=== PATIENT | male | born 1980 | race Caucasian/White ===

== ENCOUNTER 2016-07-25 12:55 | Emergency (ER) | payer BC ==
--- NOTE | ~2016-07-25 | CT2 ---
[facility] A Service of [facility] RADIOLOGY TEXT RESULTS PATIENT: RADHA SPIVEY LOCATION: SED : [birth year] UNIT #: [id number] AGE: [address]: Barbara Mojica MD SEX: M ORDER DR: [id number] [address] [address] [id number] MR#: [id number] Acc #: [id number] NAME: RADHA SPIVEY. : 1980 SEX: M STUDY DATE/TIME: 07/25/2016 14:46 UNIT: SED ROOM: STUDY DESCRIPTION: CT Abd and Pelv W Cont Attending Physician: Barbara Mojica M.D. Ordering Physician: Barbara Mojica M.D. Primary Care Physician: No Primary Care Physician MEDICAL IMAGING REPORT This report is preliminary unless electronic signature is present. EXAM CT of the abdomen and pelvis with contrast INDICATIONS Abdominal pain, nausea, vomiting, diarrhea for 2 days. Patient reports the pain is in the middle of the abdomen. TECHNIQUE Axial CT images were obtained from the dome of the diaphragm through the symphysis pubis following the administration of oral and intravenous contrast material. This CT exam was performed with one or more of the following radiation dose reduction techniques: automatic exposure control, adjustment of mA and/or kV according to patient size, and iterative reconstruction. FINDINGS Images through the lung bases are clear. Stomach and proximal small bowel are within normal limits as are the adrenal glands and spleen. Liver is unremarkable. Gallbladder is surgically absent. Pancreas is atrophic. There is some mild prominence of the common bile duct likely postcholecystectomy in nature. No renal masses are seen. No free fluid or adenopathy is seen within the abdomen. Urinary bladder is within normal limits as is the prostate gland. The appendix is visualized and is within normal limits. There is no evidence mechanical bowel obstruction. I do question if the patient's sigmoid colon is somewhat thick-walled, which could reflect some colitis. However there is no pneumatosis or free air. There is no evidence of obstruction. No free fluid is seen within the pelvis. Review of bony windows does not demonstrate any aggressive osseous abnormalities. STS. [facility] A Service of [facility] RADIOLOGY TEXT RESULTS PATIENT: RADHA SPIVEY LOCATION: SED : 78 UNIT #: [id number] AGE: [address]: Barbara Mojica MD SEX: M ORDER DR: IMPRESSION 1. I do question if the patient's sigmoid colon is slightly thick-walled. This could reflect some colitis within the appropriate clinical setting. No pneumatosis, free air or evidence of obstruction is seen. 2. Patient's appendix is visualized and is within normal limits. 3. Patient does have some pancreatic atrophy. 4. Changes of prior cholecystectomy. Dictated by... Marta Tobar M.D. THIS IS AN ELECTRONICALLY VERIFIED REPORT Marta Tobar M.D. at 07/26/2016 1:20 PM DESHAWN/ziggy TD: 07/25/2016 18:07 JOB #: [id number] MEDICAL IMAGING REPORT Page 1 of 1
[~2016-07-25 12:55] MED LIST: ALBUTEROL17 GM INH; ATIVAN0.5 M1 PO; AZITHROMYCIN250 MG PO; BACTRIM DS TABL1 TA1 PO; BENTYL20 M1 PO; BENZONATATE PO; DICLOFENAC PO; ECZEMA ANTI-I28.3 GM TOP; FLOXIN10 ML AU; IBUPROFEN PO; IBUPROFEN600 MG PO; IBUPROFEN800 MG PO; IMODIUM2 MG PO; KEFLEX500 M1 PO; KEFLEX500 MG PO; LORTAB 7.51 TAB PO; MOTRIN600 MG PO; NEURONTIN800 MG PO; NO MEDICATIONS; PEN-VEE K PO; PERCOCET 5-3251 TAB PO; PERIDEX480 ML PO; PHENERGAN VC W120 M1 PO; PHENERGAN25 MG PO; PREDNISONE10 MG PO; ROBAXIN500 MG PO; ROBITUSSIN A-C S5 ML PO; SEROQUEL PO; SYMMETREL100 M1 PO; TEGRETOL XR; THORAZINE100 MG DOB; TOPAMAX PO; TOPAMAX50 MG PO; TRAZODONE PO; ZANTAC150 MG PO; ZITHROMAX500 MG PO; ZOFRAN ODT4 MG PO; ZOFRAN PO; ZOLOFT100 MG PO; ZOVIRAX200 MG PO; ZYPREXA PO
[2016-07-25 13:42] LABS: BASOPHIL# 0.1 X10e3 (0-0.3); BASOPHIL% 0.6 % (0-2.5); EOSINOPHIL# 0.2 X10e3 (0-0.7); EOSINOPHIL% 1.4 % (0.0-7.0); HEMATOCRIT 51.6 % (38.0-50.0); HEMOGLOBIN 17.5 gm/dL (13.0-16.0); LYMPHOCYTE# 1.2 X10e3 (1.0-3.5); LYMPHOCYTE% 10.8 % (17.0-45.0); MEAN CELL VOLUME 88.8 FL (83-96); MEAN CORPUSCULAR HEMOGLOBIN 30.1 PG (28-34); MEAN CORPUSCULAR HGB CONC 33.9 g/dL (30-36); MEAN PLATELET VOLUME 8.8 FL (6.5-11.5); MONOCYTE# 0.5 X10e3 (0-1.0); MONOCYTE% 4.6 % (3.0-12.0); NEUTROPHIL# 8.9 X10e3 (1.5-7.1); NEUTROPHIL% 82.6 % (40-75); PLATELET COUNT 175 X10e3 (140-420); RED BLOOD COUNT 5.82 X10e (3.90-5.60); RED CELL DISTRIBUTION WIDTH 13.3 % (11.0-15.5); WHITE BLOOD COUNT 10.7 X10e3 (4.0-10.5)
[2016-07-25 13:44] LABS: DIFF IND NO
[2016-07-25 14:02] LABS: URINE SOURCE CLEAN CATCH
[2016-07-25 14:03] LABS: ALBUMIN SERUM 4.8 g/dL (3.5-5.0); BILIRUBIN, DIRECT 0.5 mg/dL (0.0-0.2); BILIRUBIN,INDIRECT 1.4 mg/dL (0.0-0.9); BILIRUBIN,TOTAL 1.9 mg/dL (0.2-2.0); CALCIUM SERUM 9.2 mg/dL (8.4-10.2); GLOM FILT RATE Estimated 95.1 mL/min (>60); POTASSIUM 3.2 mmol/L (3.5-5.1); PROTEIN TOTAL SERUM 8.1 g/dL (6.0-8.3)
[2016-07-25 14:30] LABS: URINE APPEARANCE CLEAR; URINE BLOOD NEG (NEG); URINE COLOR BROWN; URINE GLUCOSE NEG (NORM); URINE LEUKOCYTE ESTERASE TRACE (NEG); URINE NITRATE POS (NEG); URINE PH 5.5 (5-8); URINE PROTEIN 2+ (NEG); URINE SPECIFIC GRAVITY 1.025 (1.003-1.035)
[2016-07-25 14:44] LABS: MICRO INDICATED? YES; URINE BILIRUBIN NEG (NEG)
[2016-07-25 14:45] LABS: URINE KETONE 2+ (NEG)
[2016-07-25 14:46] LABS: CULTURE INDICATED? YES; URINE BACTERIA 1+ (NEG); URINE CRYSTALS CALCIUM OXALATE /[HPF]; URINE RBC 0-2 /[HPF] (0-2); URINE SQUAMOUS EPITHELIAL CELL FEW /[HPF]
[2016-07-25 14:47] LABS: URINE GRANULAR CAST 0-2 /[HPF]; URINE HYALINE CAST 0-2 /[HPF]; URINE MUCUS PRESENT; URINE WHITE BLOOD CELL CAST 0-2 /[HPF]
== END 2016-07-25 16:45 | disposition home or self-care (01) ==
LOC: SED 12:55
PROVIDERS: Student in an Organized Health Care Education/Training Program
DX: E86.0 Dehydration (principal); E87.6 Hypokalemia; R11.2 Nausea with vomiting, unspecified; Z90.49 Acquired absence of other specified parts of digestive tract; Z90.89 Acquired absence of other organs; F17.200 Nicotine dependence, unspecified, uncomplicated; Z79.891 Long term (current) use of opiate analgesic; Z79.899 Other long term (current) drug therapy
CPT/HCPCS: 36415; 74177; 80048; 80076; 81003; 82150; 83690; 85025; 87086; 96361; 96374; 96375; 99284; C9113; J2405; Q9967

== ENCOUNTER 2016-08-11 19:13 | Emergency (ER) | payer BC | END 2016-08-12 04:11 | LOC: CED 19:13 | DX: F11.20 Opioid dependence, uncomplicated (principal); R44.0 Auditory hallucinations; R44.1 Visual hallucinations; F17.210 Nicotine dependence, cigarettes, uncomplicated; B19.20 Unspecified viral hepatitis C without hepatic coma | CPT/HCPCS: 99285 ==

== ENCOUNTER 2016-08-12 03:00 | Inpatient (IN) | payer BC, MEDICARE ==
--- NOTE | ~2016-08-12 | PN ---
Unit #: [id number] #: [id number] Patient: RADHA PHIPPS [id number] [facility] [address] [place] [address] [id number] MR#: [id number] NAME: RADHA PHIPPS. ROOM: P183 Age: 36 Sex: M Admission Date: 08/12/2016 : 1980 Attending Physician: Graciela Sweeney M.D. Admitting Physician: Graciela Sweeney M.D. Primary Care Physician: Zoe Gloria PROGRESS NOTES DATE August 15, 2016 DISCUSSION Mr. Phipps is a 36-year-old white male, who was seen today and chart was reviewed and the case was discussed with the staff. He has been anxious, withdrawn, and rather seclusive to himself. Meanwhile, he has been cooperative with the treatment recommendations and he has been taking the medications and tolerating them fairly well with no reported side effects. MENTAL STATUS EXAMINATION Young white male, who was casually dressed with fair personal hygiene and appears to be in no acute distress or discomfort. He was awake and alert on interaction with intact orientation. His mood is anxious with a congruent affect. He denies any suicidal or homicidal ideations. His insight and judgment remain slightly impaired. TREATMENT PLAN We will continue him on his current treatment protocol, and will monitor his response to the medications, and make further adjustments as needed. Dictated by... Zoe Hassan/miriam TD: 08/15/2016 10:50 JOB #: [id number] Unit #: [id number] #: [id number] Patient: RADHA PHIPPS PROGRESS NOTES Page 1 of 1 X Graciela Sweeney MD X PROGRESS NOTE
--- NOTE | ~2016-08-12 | PN ---
Unit #: [id number] #: [id number] Patient: RADHA PHIPPS [id number] [facility] [address] [place] [address] [id number] I MR#: [id number] NAME: RADHA PHIPPS. ROOM: P183 Age: 36 Sex: M Admission Date: 08/12/2016 : 1980 Attending Physician: Graciela Sweeney M.D. Admitting Physician: Graciela Sweeney M.D. Primary Care Physician: Zoe Gloria PROGRESS NOTES DATE 08/14/2016 DISCUSSION Mr. Phipps is a 36-year-old, white male who was seen today and chart was reviewed and case was discussed with the staff. The patient remains angry, agitated, irritable, impulsive and had another episode of volatile outburst last night and has been seen to be difficult to redirected and p.r.n. medications had to be given. MENTAL STATUS EXAM Young white male who was casually dressed with fair personal hygiene, appears to be in no acute distress or discomfort. He was awake and alert with impaired attention and concentration. His mood was anxious with a congruent affect. He denies any suicidal or homicidal ideation. His insight and judgement remains slightly impaired. TREATMENT PLAN 1. We will continue him on his current medications and treatment protocol. We will monitor his response to the medications and make further adjustments as needed. 2. We will continue to follow up. Dictated by... Zoe Hassan/darshana TD: 08/14/2016 22:53 JOB #: [id number] Unit #: [id number] #: [id number] Patient: RADHA PHIPPS PROGRESS NOTES Page 1 of 1 X Graciela Sweeney MD X PROGRESS NOTE
--- NOTE | ~2016-08-12 | DS ---
Unit #: [id number] #: [id number] Patient: [facility] [id number] [facility] [address] [place] [address] [id number] I MR#: [id number] NAME: RADHA PHIPPS. ROOM: P183 Age: 36 Sex: M Admission Date: 08/12/2016 : 1980 Discharge Date: 08/16/2016 Attending Physician: Graciela Sweeney M.D. Primary Care Physician: Gordo Andrade M.D. DISCHARGE SUMMARY IDENTIFYING DATA Mr. Phipps is a 36-year-old white male, who is a resident of [place], [place] and was transferred to us from [facility] on a 72-hour hold where he presented with chief complaint "I'm hearing voices since the age of 3." HISTORY OF PRESENT ILLNESS Please see initial psychiatric evaluation for details. PAST PSYCHIATRIC HISTORY Please see initial psychiatric evaluation for details. PAST MEDICAL HISTORY Please see initial psychiatric evaluation for details. HOSPITAL COURSE The [facility] and was oriented to the hospital environment. Routine medications were initiated and he was started back on his home medications and Celexa and Risperdal were initiated, however, the patient was seen to be having persistent irritability, impulsivity, and mood swings, and poor frustration tolerance though he was taking medications regularly and tolerating them fairly well, unable to show a decent therapeutic response, and was able to calm down and was wanting to go home and was denying any suicidal thoughts and he was not seen to be a danger to himself or anyone else and as such it was decided that he would discharged, to continue treatment on an outpatient basis. DISCHARGE DIAGNOSES Needham I Bipolar disorder, single episode, depressed, moderate, with psychosis. Opiate dependence, moderate. Needham II Needham III None. Needham IV Mild psychosocial stressors. Needham V DISCHARGE MEDICATIONS 1. Celexa 20 mg a day for depression 2. Risperdal 0.5 mg twice a day for mood disorder CONDITION AT DISCHARGE Unit #: [id number] #: [id number] Patient: RADHA PHIPPS Stable. PROGNOSIS Fair. Dictated by... Zoe Hassan/miriam TD: 08/17/2016 05:01 JOB #: [id number] DISCHARGE SUMMARY Page 1 of 1 X Graciela Sweeney MD DISCHARGE SUMMARY
--- NOTE | ~2016-08-12 | HP ---
Unit #: [id number] #: [id number] Patient: RADHA SPIVEY [id number] [place] [address] [id number] I MR#: [id number] NAME: RADHA SPIVEY. ROOM: P183 Age: 36 Sex: M Admission Date: 08/12/2016 : 1980 Attending Physician: Graciela Sweeney M.D. Admitting Physician: Graciela Sweeney M.D. Primary Care Physician: Gordo Andrade M.D. HISTORY AND PHYSICAL HISTORY OF PRESENT ILLNESS Radha is a 36-year-old male admitted on 08/12/2016 to [facility] for detox from heroin and meth. PAST MEDICAL HISTORY None. PAST SURGICAL HISTORY 1. Cholecystectomy. 2. Appendectomy. ALLERGIES No known drug allergies. SOCIAL HISTORY Smokes 1 pack of cigarettes daily. Denies alcohol use. Does report daily use of heroin, meth and marijuana. He is currently from his and living alone. FAMILY HISTORY Noncontributory. REVIEW OF SYSTEMS CONSTITUTIONAL: No fever or chills. HEENT: Denies any sore throat, ear pain or runny nose. CARDIOVASCULAR: Denies chest pain, irregular heart rhythm or palpitations. CHEST: Denies shortness of breath or cough. No hemoptysis. GASTROINTESTINAL: Denies nausea, vomiting, diarrhea or chronic constipation. ENDOCRINE: Denies history of increased thirst or urination. No recent significant weight loss or gain. GENITOURINARY: Denies dysuria, frequency, or hematuria. SKIN: Denies any rashes. HEMATOLOGIC: Denies history of increased bleeding or bruising. MUSCULOSKELETAL: Denies any hot, swollen joints. No generalized muscle pain. NEUROLOGIC: Denies problems with vision or speech. No frequent, severe headaches. No numbness, tingling or weakness in any extremities. Denies loss of bladder or bowel control. CURRENT MEDICATIONS Gabapentin. Unit #: [id number] #: [id number] Patient: RADHA SPIVEY PHYSICAL EXAMINATION GENERAL: Alert, oriented, in no acute distress. VITAL SIGNS: Blood pressure 140/92, heart rate 84, respirations 16, temperature 98.8. HEIGHT: 6 feet 2. WEIGHT: 180 pounds. SKIN: Warm and dry without rash or lesion. HEENT: Normocephalic. TMs not viewed. Oral and nasal passages clear. Conjunctivae clear. PERRLA. EOMs intact. NECK: Supple without lymphadenopathy or thyromegaly. HEART: Regular rate and rhythm without murmur. LUNGS: Clear. ABDOMEN: Soft, nontender, without masses or hepatosplenomegaly. : Not done. EXTREMITIES: No evidence of cyanosis, clubbing or edema. Moves all without focal deficit. NEUROLOGICAL: Grossly within normal limits. Cranial Nerves: II: Visual sterling are intact. III, IV AND : Extraocular movements are intact. Pupils are equal, round and reactive to light. V: Facial sensation is grossly normal. VII: Facial movements and expression are normal. VIII: Auditory acuity grossly intact. IX, X: Uvula is midline. Phonation is normal. XI: Patient shrugs shoulders and turns head normally. XII: Tongue protrudes in the midline. Sensory and Motor Function: Sensory and motor sensation is grossly normal. Motor: moves all extremities well. Coordination: Gait is normal. Deep Tendon Reflexes: Intact. IMPRESSION Psychiatric admission. RECOMMENDATIONS PSYCHIATRIC: Per psychiatrist. MEDICAL: No contraindications to participate in facility's activities. MEDICAL PROGNOSIS Good. MEDICAL CONDITION Stable. Dictated by... Donis Cordova/dara TD: 08/12/2016 17:44 JOB #: [id number] Unit #: [id number] #: [id number] Patient: RADHA SPIVEY HISTORY AND PHYSICAL Page 1 of 1 X DAVID ACUNA APRN X HISTORY AND PHYSICAL
--- NOTE | ~2016-08-12 | PA ---
Unit #: [id number] #: [id number] Patient: RADHA PHIPPS [id number] [facility] [address] [place] [address] [id number] MR#: [id number] NAME: RADHA PHIPPS. ROOM: P183 Age: 36 Sex: M Admission Date: 08/12/2016 : 1980 Date of Assessment: Attending Physician: Graciela Sweeney M.D. Admitting Physician: Graciela Sweeney M.D. Primary Care Physician: Gordo Andrade M.D. PSYCHIATRIC ASSESSMENT DATE OF SERVICE 08/12/2016. IDENTIFYING DATA Mr. Phipps is a 36-year-old white male who is a resident of [place], [place] and was transferred to us from [facility] on 72 hours hold. CHIEF COMPLAINT "I've been hearing voices since the age of 3." HISTORY OF PRESENT ILLNESS Mr. Phipps is a 36-year-old white male who was taken to the emergency room at [facility] with auditory hallucinations, which he reports that he has been hearing voices since the age of 3. Over the last few days, the voices have been frequently telling him that he could kill himself by shooting up with heroin and never wake up again. Also, he reports that the voices have been putting bad thoughts in his head to hurt people, but denied anyone in particular. He reports that he started seeing people jumped out of the [place] and normally can tell something is not real, but he had to use heroin IV to calm himself down and reports using heroin by IV 2 days ago, but denied knowing the amount and shared that he normally uses 1 g of heroin a day and smokes 4 joints of marijuana in the last 24 hours. He reports that he overdosed on heroin a few days ago and he was taken to the hospital, but he does not remember it and reports that he recently went to [facility] to refill his medication, however, was taken to the hospital for making homicidal comments regarding his . He reports that he is depressed due to having to separate from his per adult protective services or CPS will be called. The patient reports that he has an EPO out against him as well. He reports being employed with [employer] full-time for the past few months and has been living alone in his own place, and reports that he is grieving the separation with his and the loss of his mother and grandmother, and does report increasing depression, anxiety, irritability, restlessness, feelings of hopelessness and helplessness, suicidal ideations, and command auditory hallucinations. SUBSTANCE ABUSE HISTORY The patient reports history of experimentation with abuse of alcohol, cannabis, cocaine, opioids, methamphetamine, and spice, and currently heroin has been his drug of choice. PAST PSYCHIATRIC HISTORY Unit #: [id number] #: [id number] Patient: RADHA PHIPPS The patient has had a history of multiple inpatient psychiatric hospitalizations at [facility], at [facility], and other places, and review of the medical records indicated that currently he is not active in any treatment program, is not seeing a psychiatrist, and is not taking any psychotropic medications. PAST MEDICAL HISTORY The patient's medical history is insignificant. ALLERGIES No known medication allergies. PERSONAL AND SOCIAL HISTORY A 36-year-old white male who reports that he is and and lives alone and has poor social support system. MENTAL STATUS EXAMINATION Young white male who was casually dressed with fair personal hygiene, appears to be in no acute distress or discomfort. He was awake and alert on interaction with intact orientation to time, place, and person. His mood was anxious and depressed with a congruent affect. His speech was slow and tangential. His thought processes were disorganized with some looseness of associations, flight of ideas, paranoid ideations, command auditory hallucinations, suicidal and homicidal ideations. His insight and judgment remain significantly impaired. DIAGNOSTIC IMPRESSION Psychiatric: Bipolar disorder, most recent episode depressed, recurrent, moderate, with psychosis; opioid dependence, moderate. Medical: None. Stressors: Moderate psychosocial stressors. TREATMENT PLAN 1. The patient has presented with a history of mood disorder and psychosis and has been decompensating and will need inpatient hospitalization for safety and stabilization. We will start him back on his home medication. We will also consider a trial of antipsychotic and antidepressant combination. 2. Supportive therapy was provided to the patient. ESTIMATED LENGTH OF STAY 5 to 7 days. ABILITY TO HELP SELF Limited. WILLINGNESS TO HELP SELF The patient appears to be willing to help self. STRENGTHS 1. Communicative. 2. Cooperative. PROBLEMS 1. Chronic dysphoric symptoms. 2. Chronic chemical dependency. 3. Poor social support system. DISCHARGE CRITERIA Unit #: [id number] #: [id number] Patient: RADHA PHIPPS This will be contingent upon the patient's ability to show resolution of his depression and psychosis as well as his ability to stay safe to himself, particularly after discharge from the hospital. Dictated by... Zoe Hassan/sarthak TD: 08/12/2016 07:07 JOB #: [id number] PSYCHIATRIC ASSESSMENT Page 1 of 1 X Graciela Sweeney MD X PSYCHIATRIC ASSESSMENT
--- NOTE | ~2016-08-12 | PN ---
Unit #: [id number] #: [id number] Patient: RADHA PHIPPS [id number] [facility] [address] [place] [address] [id number] MR#: [id number] NAME: RADHA PHIPPS. ROOM: P183 Age: 36 Sex: M Admission Date: 08/12/2016 : 1980 Attending Physician: Graciela Sweeney M.D. Admitting Physician: Graciela Sweeney M.D. Primary Care Physician: Zoe Gloria PROGRESS NOTES DATE OF SERVICE: 08/13/2016 SUBJECTIVE Mr. Phipps is a 36-year-old white male, who was seen today and chart was reviewed and case was discussed with the staff. He anxious, withdrawn, has been taking the medications and tolerating them fairly well. MENTAL STATUS EXAMINATION Young white male who was casually dressed with fair personal hygiene, appears to be in no acute distress or discomfort. He was awake and alert with intact orientation. His mood was anxious with a congruent affect. He denies any suicidal or homicidal ideations. His insight and judgment remain slightly impaired. TREATMENT PLAN 1. We will continue on his current medications and treatment protocol. We will monitor his response and make further adjustments as needed. 2. We will continue to follow up. Dictated by... Zoe Hassan/jesseel TD: 08/14/2016 01:36 JOB #: [id number] [facility] PROGRESS NOTES Page 1 of 1 X Graciela Sweeney MD PROGRESS NOTE
--- NOTE | ~2016-08-12 | A ---
[facility] Nutrition Therapy DATE: 08/12/16 Patient: RADHA WARRENNINGTON Physician: LUPIS Address: [address] [place] [address] Room/Bed: [address], Zip: [place] [address] Admit Date: 08/12/16 Date of : [birth year] Height: 6 2 Weight: [phone] NUTRITIONAL ASSESSMENT: REASON: UNINTENTIONAL WEIGHT LOSS PATIENT ADMITTED FOR DEPRESSION, A/V HALLUCINATIONS, AND DETOX PMH: HEP C Anthropometrics: HT: 6'2", WT: 180#, BMI: 23.1 Labs: 08/12/16- BUN: 7, ALB: 3.4 Meds: CELEXA, RISPERDAL, DETOX PROTOCOL, DESYREL, MVI Assessment: PATIENT IS A 36 Y/O MALE ADMITTED FOR DEPRESSION, DETOX, AND A/V HALLUCINATIONS. PATIENT IS CURRENTLY EMPLOYED, LIVES ALONE, SMOKES 1 1/2 PPD, HAS DAILY HEROIN USE, AND FREQUENT MARIJUANA AND METH USE. PATIENT HAS A HX OF INPATIENT PSYCH HOSPITALIZATIONS AND HE HAS BEEN NON-COMPLIANT WITH HIS MEDS PRIOR TO ADMIT. PER NEEDS ASSESSMENT PATIENT STATED A POOR APPETITE WITH A 20# WEIGHT LOSS X WEEKS, AND HE HAS NOT BEEN SLEEPING. CURRENT PO INTAKES ARE UNAVAILABLE D/T PATIENT ADMITTED TO FACILITY TODAY. THERE ARE NO SKIN ISSUES NOTED ATT. CURRENT PSYCH MEDS MAY CAUSE WEIGHT AND APPETITE FLUCTUATIONS. PATIENT'S BMI IS WITHIN A HEALTHY RANGE. PATIENT IS ON A REGULAR DIET WITH NO CAFFEINE. Dx: UNINTENTIONAL WEIGHT LOSS R/T CURRENT CONDITION, DRUG USE AEB SELF-REPORTED WEIGHT LOSS AND DECREASED APPETITE, NUTRITIONAL RISK POINT Intervention: REGULAR DIET, MEDS PER MD, DETOX, PSYCH Monitoring, Evaluation and Goals: 1. ADEQUATE PO INTAKES >50% OF MEALS 2. PREVENT, CORRECT MICRO/MACRO NUTRIENT DEFICIENCIES MONITOR: WEIGHTS, LABS, PO/FLUID INTAKES Recommendations: 1. CONTINUE REGULAR DIET WITH NO CAFFEINE. OFFER SNACKS BETWEEN MEALS. IF PATIENT HAS C/O HUNGER PLEASE SEND ORDER FOR LARGE PORTION ENTREES AND RD WILL APPROVE 2. ENCOURAGE ADEQUATE PO AND FLUID INTAKES 3. OBTAIN WEIGHTS ROUTINELY (EVERY 3-4 DAYS) 4. IF PO INTAKES ARE BELOW 50% OF MEALS PLEASE ORDER ENSURE BID TO PROMOTE ADEQUATE KCAL [facility] Nutrition Therapy DATE: 08/12/16 Patient: RADHA SPIVEY Physician: LUPIS Address: [address] [place] [address] Room/Bed: 83-[address] [facility], Zip: [place] [address] Admit Date: 08/12/16 Date of : [birth year] Height: 6 2 Weight: [phone] TO F/U PER PROTOCOL AND PRN R/T PATIENT MILDLY COMPROMISED Respectfully, PAUL NAJERA RD, LD [facility] cc: client file
[2016-08-12 09:53] LABS: BASOPHIL# 0.1 X10e3 (0-0.3); BASOPHIL% 0.9 % (0-2.5); EOSINOPHIL# 0.3 X10e3 (0-0.7); EOSINOPHIL% 3.3 % (0.0-7.0); HEMOGLOBIN 15.3 gm/dL (13.0-16.0); LYMPHOCYTE# 1.5 X10e3 (1.0-3.5); LYMPHOCYTE% 16.7 % (17.0-45.0); MEAN CELL VOLUME 90.1 FL (83-96); MEAN CORPUSCULAR HEMOGLOBIN 29.4 PG (28-34); MEAN CORPUSCULAR HGB CONC 32.6 g/dL (30-36); MEAN PLATELET VOLUME 9.2 FL (6.5-11.5); MONOCYTE# 0.5 X10e3 (0-1.0); MONOCYTE% 5.7 % (3.0-12.0); NEUTROPHIL# 6.4 X10e3 (1.5-7.1); NEUTROPHIL% 73.4 % (40-75); PLATELET COUNT 180 X10e3 (140-420); RED BLOOD COUNT 5.22 X10e (3.90-5.60); RED CELL DISTRIBUTION WIDTH 13.4 % (11.0-15.5); WHITE BLOOD COUNT 8.7 X10e3 (4.0-10.5)
[2016-08-12 09:54] LABS: DIFF IND NO
[2016-08-12 10:03] LABS: ALBUMIN SERUM 3.4 g/dL (3.5-5.0); BILIRUBIN,TOTAL 0.9 mg/dL (0.2-2.0); BUN/CREATININE RATIO 7.77; CALCIUM SERUM 8.8 mg/dL (8.4-10.2); CREATININE SERUM 0.9 mg/dL (0.6-1.4)
[2016-08-15 09:41] LABS: URINE APPEARANCE CLEAR; URINE BILIRUBIN NEG (NEG); URINE BLOOD NEG (NEG); URINE COLOR YELLOW; URINE GLUCOSE NEG (NEG); URINE KETONE NEG (NEG); URINE LEUKOCYTE ESTERASE NEG (NEG); URINE NITRATE NEG (NEG); URINE PH 6.5 (5-8); URINE PROTEIN NEG (NEG); URINE SPECIFIC GRAVITY 1.007 (1.003-1.035); URINE UROBILINOGEN 0.2 MG/DL (NEG)
[2016-08-15 10:12] LABS: AMPHETAMINE NEG (NEG); BARBITURATES NEG (NEG); BENZODIAZEPINES POS (NEG); COCAINE NEG (NEG); MARIJUANA POS (NEG); OPIATES NEG (NEG); TRICYCLIC ANTIDEPRESSANTS NEG (NEG); U METHADONE NEG (NEG)
== END 2016-08-16 09:45 | disposition home or self-care (01) | DRG 885 ==
LOC: P1E 04:57
PROVIDERS: Psychiatry & Neurology Psychiatry
PROC: HZ2ZZZZ Detoxification Services for Substance Abuse Treatment (ICD-10-PCS; principal; 2016-08-12)
DX: F31.5 Bipolar disorder, current episode depressed, severe, with psychotic features (principal); F11.20 Opioid dependence, uncomplicated; R45.851 Suicidal ideations; R45.850 Homicidal ideations; Z90.49 Acquired absence of other specified parts of digestive tract; F17.210 Nicotine dependence, cigarettes, uncomplicated
CPT/HCPCS: 80053; 80307; 81003; 85025; 86592

== ENCOUNTER 2016-09-02 19:47 | Inpatient (IN) | payer MEDICARE ==
[~2016-09-02] VITALS: Ht 185.4 cm; Wt 81.6 kg
--- NOTE | ~2016-09-02 | DS ---
Unit #: [id number] #: [id number] Patient: RADHA PHIPPS [id number] [facility] [address] [place] [address] [id number] I MR#: [id number] NAME: RADHA PHIPPS. ROOM: P121 Age: 36 Sex: M Admission Date: 09/02/2016 : 1980 Discharge Date: Attending Physician: Graciela Sweeney M.D. Primary Care Physician: Gordo Andrade M.D. DISCHARGE SUMMARY IDENTIFYING DATA Mr. Phipps is a 36-year-old, disabled, white male, who is a resident of [place], [place], and is very well known to us from previous multiple encounters and was self-referred to the hospital. DISCHARGE DIAGNOSES Psychiatric: Schizoaffective disorder, bipolar type, most recent episode depressed, recurrent, moderate, with psychosis; opioid dependence, moderate; methamphetamine dependence, moderate. Medical: Hepatitis C. Stressors: Moderate psychosocial stressors. HISTORY OF PRESENT ILLNESS Please see initial psychiatric evaluation for details. PAST PSYCHIATRIC HISTORY Please see initial psychiatric evaluation for details. PAST MEDICAL HISTORY Please see initial psychiatric evaluation for details. HOSPITAL COURSE The patient was admitted to the adult [facility] at [facility] and was oriented to the hospital environment. Routine p.r.n. medications were initiated, and he was started back on his home medications. However, he was seen to be exhibiting some acute psychosis and as such, medications were adjusted regularly and Risperdal was switched to Zyprexa and the dosage was gradually titrated up and he was closely monitored. He was taking the medications regularly and tolerating them fairly well and was able to show a fairly decent therapeutic response and as such, it was decided that he will be discharged home and will continue treatment on an outpatient basis. DISCHARGE MEDICATIONS Zyprexa 10 mg b.i.d. for psychosis and Celexa 20 mg a day for depression. DISCHARGE CONDITION Stable. PROGNOSIS Fair. Unit #: [id number] #: [id number] Patient: RADHA PHIPPS Dictated by... Graciela Sweeney M.D. IAA/modl TD: 09/07/2016 07:02 JOB #: [id number] DISCHARGE SUMMARY Page 1 of 1 X Graciela Sweeney MD DISCHARGE SUMMARY
--- NOTE | ~2016-09-02 | PN ---
Unit #: [id number] #: [id number] Patient: RADHA PHIPPS [id number] [facility] [address] [place] [address] [id number] I MR#: [id number] NAME: RADHA PHIPPS. ROOM: P201 Age: 36 Sex: M Admission Date: 09/02/2016 : 1980 Attending Physician: Graciela Sweeney M.D. Admitting Physician: Graciela Sweeney M.D. Primary Care Physician: Zoe Gloria PROGRESS NOTES DATE OF SERVICE: 09/06/2016 SUBJECTIVE Mr. Phipps is a 36-year-old white male, who was seen today and chart was reviewed and case was discussed with the staff. He has been anxious, withdrawn, and rather seclusive to himself. Meanwhile, he has been cooperative with treatment recommendation and has been taking medications and tolerating them fairly well with no reported side effects. MENTAL STATUS EXAMINATION Young white male who was casually dressed with fair personal hygiene, appears to be in no acute distress or discomfort. He was awake and alert on interaction with intact orientation. His mood was anxious with a congruent affect. He denies any suicidal or homicidal ideations. His insight and judgment remain slightly impaired. TREATMENT PLAN 1. We will continue on his current medications and treatment protocol. We will monitor his response to the medications and make further adjustments as needed. 2. We will continue to follow up. Dictated by... Zoe Hassan/sarthak TD: 09/06/2016 23:08 JOB #: [id number] [facility] PROGRESS NOTES Page 1 of 1 X Graciela Sweeney MD X PROGRESS NOTE
--- NOTE | ~2016-09-02 | HP ---
Unit #: [id number] #: [id number] Patient: RADHA SPIVEY [id number] [facility] [address] [place] [address] [id number] I MR#: [id number] NAME: RADHA SPIVEY. ROOM: P209 Age: 36 Sex: M Admission Date: 09/02/2016 : 1980 Attending Physician: Graciela Sweeney M.D. Admitting Physician: Graciela Sweeney M.D. Primary Care Physician: Gordo Andrade M.D. HISTORY AND PHYSICAL The patient is a 36-year-old male admitted to [address] [place] [address] on 09/03/2016 for polysubstance abuse. Patient had a recent admission to this facility on 08/12/2016 where a full history and physical was completed. That history and physical has been reviewed. No changes need to be made. Dictated by... Donis Young/dara TD: 09/03/2016 16:35 JOB #: [id number] HISTORY AND PHYSICAL Page 1 of 1 X GRICEL SARAVIA APRN X HISTORY AND PHYSICAL
--- NOTE | ~2016-09-02 | PN ---
Unit #: [id number] #: [id number] Patient: RADHA PHIPPS [id number] [facility] [address] [place] [address] [id number] I MR#: [id number] NAME: RADHA PHIPPS. ROOM: P209 Age: 36 Sex: M Admission Date: 09/02/2016 : 1980 Attending Physician: Graciela Sweeney M.D. Admitting Physician: Graciela Sweeney M.D. Primary Care Physician: Zoe Gloria PROGRESS NOTES DATE September 04, 2016 DISCUSSION Mr. Phipps is a 36-year-old white male, who was seen today and chart was reviewed and the case was discussed with the staff. He has been anxious, withdrawn, and very seclusive to himself and he has been laying in the bed quite a bit and then tried to get up and had a fall but he did not injure himself. He reports persistent depression and anxiety, but he has been taking the medications and tolerating them fairly well. MENTAL STATUS EXAMINATION Young white male, who was casually dressed with fair personal hygiene and appears to be in no acute distress or discomfort. He was awake and alert on interaction with intact orientation. His mood is anxious with a congruent affect. He denies any suicidal or homicidal ideations, and also denies any auditory or visual hallucinations. His insight and judgment remain slightly impaired. TREATMENT PLAN 1. We will continue him on his current medications and treatment protocol, and will monitor his response to the medications, and make further adjustments as needed. 2. We will continue to followup. Dictated by... Zoe Hassan/miriam TD: 09/05/2016 12:05 JOB #: [id number] Unit #: [id number] #: [id number] Patient: RADHA PHIPPS PROGRESS NOTES Page 1 of 1 X Graciela Sweeney MD PROGRESS NOTE
--- NOTE | ~2016-09-02 | DS ---
Unit #: [id number] #: [id number] Patient: RADHA SPIVEY [id number] [facility] [address] [place] [address] [id number] MR#: [id number] NAME: RADHA SPIVEY. ROOM: P121 Age: 36 Sex: M Admission Date: 09/02/2016 : 1980 Discharge Date: 09/08/2016 Attending Physician: Graciela Sweeney M.D. Primary Care Physician: Gordo Andrade M.D. DISCHARGE SUMMARY ADDENDUM Desire was scheduled to be discharged yesterday on 09/07/2016, however, he stated he was not feeling good and still having some depression and some hallucinations and as such, discharge planning was cancelled. He was seen by me on the morning of 09/08/2016, the patient stated that he is feeling much better and he wants to go and was denying any hallucinations and was denying any suicidal or homicidal ideations, and as such, was not meeting criteria for further inpatient psychiatric hospitalization decided that he will be discharged home. His prescriptions recommend ongoing outpatient psychiatric treatment with intensive outpatient treatment program at [facility]. DISCHARGE CONDITION Stable. PROGNOSIS Fair. Dictated by... Zoe Hassan/sarthak TD: 09/08/2016 15:12 JOB #: [id number] DISCHARGE SUMMARY Page 1 of 1 X Graciela Sweeney MD X DISCHARGE SUMMARY
--- NOTE | ~2016-09-02 | PN ---
Unit #: [id number] #: [id number] Patient: RADHA PHIPPS [id number] [facility] [address] [place] [address] [id number] I MR#: [id number] NAME: RADHA PHIPPS. ROOM: P201 Age: 36 Sex: M Admission Date: 09/02/2016 : 1980 Attending Physician: Graciela Sweeney M.D. Admitting Physician: Graciela Sweeney M.D. Primary Care Physician: Zoe Gloria PROGRESS NOTES DATE 09/05/2016 DISCUSSION Mr. Phipps is a 36-year-old white male who was seen today and chart was reviewed and case was discussed with the staff. He has been anxious, withdrawn and restless and discomfort stating that he has been hearing voices all night long and the voices have been derogatory and command in nature and he could not sleep and has been in distress and discomfort related to that. He has been taking the Zyprexa and was tolerating it fairly well, he has not been able to show a therapeutic response. MENTAL STATUS EXAMINATION Young white male who was casually dressed with fair personal hygiene and appears to be in no acute distress or discomfort. He was awake and alert on interaction with intact orientation. His mood was anxious with congruent affect. He denies any suicidal or homicidal ideations. His insight and judgement remains slightly impaired. TREATMENT PLAN 1. Will continue on his current medications and treatment protocol. Will monitor his response to the medications and make further adjustments as needed. 2. Will continue to follow up. Dictated by... Zoe Hassan/dara TD: 09/06/2016 18:22 JOB #: [id number] Unit #: [id number] #: [id number] Patient: RADHA PHIPPS PROGRESS NOTES Page 1 of 1 X Graciela Sweeney MD PROGRESS NOTE
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
[2016-09-04 15:04] LABS: AMPHETAMINE NEG (NEG); BARBITURATES NEG (NEG); BENZODIAZEPINES NEG (NEG); COCAINE NEG (NEG); MARIJUANA POS (NEG); OPIATES NEG (NEG); TRICYCLIC ANTIDEPRESSANTS NEG (NEG); U METHADONE NEG (NEG)
== END 2016-09-08 09:39 | disposition home or self-care (01) | DRG 885 ==
LOC: P2S 22:21 → P1S 09-07 18:07
PROVIDERS: Psychiatry & Neurology Psychiatry
DX: F25.0 Schizoaffective disorder, bipolar type (principal); F11.20 Opioid dependence, uncomplicated; F15.20 Other stimulant dependence, uncomplicated; F31.32 Bipolar disorder, current episode depressed, moderate; F29 Unspecified psychosis not due to a substance or known physiological condition; B19.20 Unspecified viral hepatitis C without hepatic coma
CPT/HCPCS: 80307; 82947